=== PATIENT | male | born 1965 ===

== ENCOUNTER 2022-06-28 05:12 | Day surgery (SDC) | payer OTHER ==
[~2022-06-28] VITALS: Ht 177.8 cm; Wt 68.0 kg
[~2022-06-28 05:12] MED LIST: TENORMIN25 MG PO
[2022-06-28] MEDS ORDERED: PERCOCET 5-3251 EACH PO (12:58)
[2022-06-28] MEDS ORDERED: NEURONTIN300 MG PO (12:59)
[2022-06-28] MEDS ORDERED: POLY119PG PO (12:59)
== END 2022-06-28 15:50 | disposition home or self-care (01) ==
LOC: CIR.AMB 05:12
PROVIDERS: ATTEND Surgery
DX: K40.91 Unilateral inguinal hernia, without obstruction or gangrene, recurrent (principal); Z20.822 Contact with and (suspected) exposure to COVID-19